=== PATIENT | female | born 1975 | race Caucasian/White ===

== ENCOUNTER 2018-08-24 20:40 | Inpatient (IN) | payer BC, MEDICARE ==
[~2018-08-24] VITALS: Ht 152.4 cm; Wt 117.9 kg
[2018-08-24 20:42] VITALS: BP 133/85
[2018-08-24 21:00] LABS: HEMATOCRIT 32.9 % (37.0-47.0); HEMOGLOBIN 11.5 gm/dL (12.0-15.0); MCH 33.2 pg (26.0-34.0); MCV 94.7 fL (80.0-100.0); MPV 6.8 fl. (7.2-11.1); NUCLEATED RBCS 0 /100WBC; PLATELET COUNT* 315 thou/uL (150-400); RBC 3.48 mil/uL (4.20-5.00); RDW-CV 17.7 % (10.5-14.5)
[2018-08-24 21:20] LABS: ALBUMIN 3.1 g/dL (3.4-5.0); ALKALINE PHOSPHATASE 83 U/L (46-116); ANION GAP 9 mmol/L (7-16); BUN 8 mg/dL (7-18); CALCIUM 8.4 mg/dL (8.5-10.1); CHLORIDE 102 mmol/L (98-107); CO2 26 mmol/L (21-32); CREATININE 0.9 mg/dL (0.6-1.3); GLUCOSE 186 mg/dL (70-99); POTASSIUM 3.2 mmol/L (3.5-5.1); SGPT 58 U/L (30-65); SODIUM 137 mmol/L (136-145); TOTAL BILIRUBIN 0.4 mg/dL (<0.1-1.0); TOTAL PROTEIN 6.8 g/dL (6.4-8.2); TROPONIN-I LEVEL <0.06 ng/mL (<0.06)
[2018-08-24] MEDS ORDERED: ARMOUR THYROID30 M1 PO (21:35)
[2018-08-24] MEDS ORDERED: ATROVENT HFA14 GM INH (21:36)
[2018-08-24] MEDS ORDERED: ASPIR 8181 MG PO (21:36)
[2018-08-24] MEDS ORDERED: PULMICORT0.5 MG/22 INH (21:37)
[2018-08-24] MEDS ORDERED: LIORESAL 10 MG10 MG PO (21:37)
[2018-08-24] MEDS ORDERED: AZITHROMYCIN250 MG PO (21:37)
[2018-08-24] MEDS ORDERED: DALIRESP500 MCG PO (21:38)
[2018-08-24] MEDS ORDERED: CALCIUM 600 +1 EAC1 PO (21:38)
[2018-08-24] MEDS ORDERED: CARDIZEM CD120 MG PO (21:39)
[2018-08-24] MEDS ORDERED: CYMBALTA60 MG PO (21:39)
[2018-08-24 21:40] LABS: ABSOLUTE EOSINOPHILS 0.2 thou/uL (0.0-0.7); ABSOLUTE LYMPHOCYTES 4.9 thou/uL (0.8-5.3); ABSOLUTE MONOCYTES 0.7 thou/uL (0.0-1.2); ABSOLUTE NEUTROPHILS 11.2 thou/uL (1.6-8.1); ANISOCYTOSIS 1+; PLATELET ESTIMATE ADEQUATE; TOXIC GRANULATION 2+
[2018-08-24] MEDS ORDERED: EPIPEN0.3 MG/0.1 IM (21:40)
[2018-08-24] MEDS ORDERED: FORTEO750 MCG/3 SUBQ (21:40)
[2018-08-24] MEDS ORDERED: FLAX OIL1000 MG (21:40)
[2018-08-24] MEDS ORDERED: HIZENTRA10 GM/50 M SUBQ (21:41)
[2018-08-24] MEDS ORDERED: NEURONTIN 300300 M1 PO (21:41)
[2018-08-24] MEDS ORDERED: IPRATROPIU0.2 MG/1 M INH (21:42)
[2018-08-24] MEDS ORDERED: HYDRALAZINE 10M10 MG PO (21:42)
[2018-08-24] MEDS ORDERED: JANUVIA50 MG PO (21:42)
[2018-08-24] MEDS ORDERED: CLONAZEPAM 1 MG1 M1 PO (21:43)
[2018-08-24] MEDS ORDERED: POTASSIUM20 PO (21:43)
[2018-08-24] MEDS ORDERED: UNICOMPLEX M TA1 TA1 PO (21:43)
[2018-08-24] MEDS ORDERED: PROTONIX40 M1 PO (21:44)
[2018-08-24] MEDS ORDERED: HYDROXYCHLOROQ200 M1 PO (21:44)
[2018-08-24] MEDS ORDERED: NUCALA100 MG SUBQ (21:44)
[2018-08-24] MEDS ORDERED: QVAR REDIHALE10.6 G1 INH (21:45)
[2018-08-24] MEDS ORDERED: ZANTAC 150MG T150 MG PO (21:45)
[2018-08-24] MEDS ORDERED: PREDNISONE 20 M20 MG PO (21:45)
[2018-08-24] MEDS ORDERED: SYMBICORT160 MCG/4. INH (21:46)
[2018-08-24] MEDS ORDERED: ZOCOR20 MG PO (21:46)
[2018-08-24] MEDS ORDERED: TRAMADOL 50 MG50 MG PO (21:46)
[2018-08-24] MEDS ORDERED: SPIRIVA INH (21:46)
[2018-08-24] MEDS ORDERED: ZONISAMIDE 100100 M1 PO (21:47)
[2018-08-24] MEDS ORDERED: DEMADEX20 MG PO (21:47)
[2018-08-24] MEDS ORDERED: ZYRTEC10 M5 PO (21:48)
[2018-08-24] MEDS ORDERED: ZYFLO 600 MG600 M1 PO (21:48)
[2018-08-24 21:51] LABS: SGOT 39 U/L (15-37)
[2018-08-24 22:09] LABS: BE -4.4 mmol/L (-2 to +3); PCO2 43.8 mmHg (35.0-45.0); pH 7.313 (7.340-7.450)
[2018-08-24 22:11] LABS: PO2 184.2 mmHg (75.0-100.0)
[2018-08-25] VITALS: BP 123/72
[2018-08-25 00:15] VITALS: BP 119/65
[2018-08-25 04:59] VITALS: BP 117/71
[2018-08-25] MEDS ORDERED: ATIVAN0.5 MG PO (12:43)
[2018-08-25] MEDS ORDERED: ATIVAN0.5 M1 PO (13:01)
[2018-08-25 13:07] VITALS: BP 117/71
--- NOTE | 2018-08-25 15:06 | EKG ---
[place] [address] ELECTROCARDIOGRAM REPORT Name: PHILIP SOSA Room: [address] IN .R.#: [id number] Admission: 08/24/18 Attend Phys: Janusz Camarena, Discharge: Date of : 71 Report #: [id number] THIS REPORT FOR: //name// [facility] ED Test Date: 2018-08-24 Test Time: 20:52:46 Pat Name: PHILIP SOSA Department: Room: [facility] Gender: F Switch Technician: Irish RAMOS : 1975 Requested By: Deborah Schumacher Order Number: [id number] MD: Gerald Boland Measurements Intervals [place] Rate: 143 P: 49 WI: 90 QRS: 14 QRSD: 119 T: 41 QT: 324 QTc: 500 Interpretive Statements Sinus tachycardia Low voltage, precordial leads Borderline ST depression, lateral leads No previous ECG available for comparison Electronically Signed On 08-25-2018 15:06:32 CDT by Gerald Boland [email or web address] <ELECTRONICALLY SIGNED> By: Gerald Boland MD, [facility] 08/25/18 1506 51 51 Gerald Boland MD, [facility] /EPI
--- NOTE | 2018-08-27 12:34 | CON ---
[address] [address] CONSULTATION Name: PHILIP SOSA Room: [address] IN [facility]#: [id number] Admission: 08/24/18 Attend Phys: Janusz Camarena, Discharge: 08/25/18 Date of : 71 Report #: [id number] THIS REPORT FOR: //name// CC: MONI JUAREZ Physician staff Janusz Camarena DATE OF SERVICE: 08/25/2018 ATTENDING PHYSICIANS: Dr. Camarena and Dr. Farrar PRIMARY CARE PHYSICIAN: Dr. Moni Juarez in [place], [place]. LOCATION: She is in room #311. INDICATION FOR CONSULTATION: Asthma, dyspnea. CLINICAL SUMMARY: The patient is a pleasant 42-year-old female, nonsmoker with very complicated past medical history. She was admitted through the Emergency Room yesterday afternoon when she was traveling on the side of the road and they were coming from [place] to [facility] in [place] for scheduled treatment. Their car broke down, they had a flat tire, it took them 30-60 minutes to get the tire fixed, the tire is now fixed and in good shape, the car is in good shape. They had an oxygen concentrator and one of the batteries went bad and so she was running out of her oxygen and had more bronchospasm. The patient was then admitted through the Emergency Room. Her chest x-ray was negative. Gases were stable even though she was on BiPAP. 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 She is quite comfortable with it and also taking portable nebulizers in the car. She has been back and forth from [facility] 4 or 5 times and is usually 4 or 5 days in a stretch. Unbeknownst to me, they used to admit her as an inpatient and do an inpatient workup. She tells me that they are all doing this as an outpatient at [facility] in [place] and that they will come in and round on them, but there are inpatient rounds at [facility] an hour for strictly pediatric patients and not their adult patients. The patient is a steroid dependent, has been steroid dependent for the last 4 years. She has had some adrenal insufficiency and she has had several flareups. As far as I can tell, she has not been intubated for her asthma, but it is quite bronchospastic. 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 Her workup for MAC and for fungus and Aspergillus were negative. 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 [address] CONSULTATION Name: PHILIP SOSA Room: [address]#: [id number] Admission: 08/24/18 Attend Phys: Janusz Camarena, Discharge: 08/25/18 Date of : 71 Report #: [id number] ALLERGIES: SHE HAS MULTIPLE ALLERGIES OR INTOLERANCES INCLUDING BUMEX, CEPHALOSPORINS NAUSEA, MEPERIDINE, DEMEROL, MINOCYCLINE NAUSEA, SPIRONOLACTONE UNKNOWN, TELAVANCIN AND TETRACAINE. MEDICATIONS: Outpatient medications are multiple, in brief, Daliresp 500 mcg daily, prednisone is between 40 and 60 mg daily, currently on 60. She is on Atrovent nebulizer treatments every 4 hours and also on Hizentra 20 grams subcutaneous weekly, duloxetine (Cymbalta) 120 mg daily, diltiazem (Cardizem-CD) 360 mg daily, azithromycin dose has been 250 mg daily, aspirin 81 mg daily, [place] Thyroid 30 mg daily, also Protonix 40 mg daily, simvastatin (Zocor) 20 mg daily, Spiriva hand inhalers 1 cap b.i.d. and then Symbicort 160/4.5 two puffs b.i.d., also on Zyflo 600 mg 2 tabs b.i.d. FAMILY HISTORY: Negative for premature cardiopulmonary disease. SOCIAL HISTORY: The patient is a previous respiratory therapist. She is a lifelong nonsmoker, nondrinker. She is with her and her is quite supportive, it appears, talking to him at the bedside. They both reside in [place], [place] outside [place] in [place], but travel to [facility] in [place]. REVIEW OF SYSTEMS: A 14-point review of systems reviewed and negative except for pertinent positives noted in HPI. PHYSICAL EXAMINATION: GENERAL: This is a pleasant 42-year-old female who was obviously cushingoid, but in no acute distress. She is sitting up in bed, alert and talking to me in sentences. VITAL SIGNS: Blood pressure is 117/71, heart rate is 110, which they said is within normal limits for her, respirations are 16-20, saturation on 3 liters is 95%. Temperature is 36.7 degrees. She is 5 feet 4 inches tall, weight is 118 kilograms or 245 pounds, BMI is 50. 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 Pharynx is clear. NECK: Supple without nodes. CHEST: Shows diminished breath sounds with prolonged expiratory phase. No wheezes noted. No use of accessory muscles. CARDIOVASCULAR: Shows diminished heart tones with a regular rate and rhythm with sinus tachycardia, heart rate 110. ABDOMEN: Soft, without masses or megaly. EXTREMITIES: No calf tenderness. No cyanosis, clubbing or edema. LABORATORY AND DIAGNOSTIC DATA: Hemoglobin is 11, white count of 17,000 and platelets are 315,000 and normal neutrophils and lymphocytes. Absolute neutrophil count is 11,000. Chemistry: Sodium was 137, potassium is 3.2, being repleted, carbon dioxide is 26, BUN is 8, creatinine 0.9, GFR 68, glucose 186, [place] [address] CONSULTATION Name: PHILIP SOSA Room: [address]#: [id number] Admission: 08/24/18 Attend Phys: Janusz Camarena, Discharge: 08/25/18 Date of : 71 Report #: [id number] and calcium is 8.4. Troponin was negative and albumin is 3.1. There is one lactic acid of 5.3 that maybe is a spurious sample. She states she has previously had lactic acids in the 7 range and was not "septic." ABGs on BiPAP in the Emergency Room at 8:00 last night on 40% 31/01 with backup rate of 14 shows a pO2 of 184, pH 7.31, pCO2 is 43, bicarb is 22, sats 98%, carboxyhemoglobin was 0.0. Again, chest x-ray is negative. IMPRESSION: 1. Severe asthma, steroid dependent. 2. Immune deficiency. 3. Trilogy dependent. 4. Variable immune deficiency and followup visits at [facility]. PLAN: I think the patient is safe to travel. We discussed this in length with the patient and her , Mckinley, who was at the bedside. He feels that she is stable to go there and has seen her in much worse condition. They are quite comfortable using the Trilogy and the portable oxygen concentrator. They have an 8-hour battery with a backup with this. They also have a portable nebulizer that will work of his car battery and is crystal mounter. I told them that either in [place] or [facility], they could stop for another hospital. Once they get on the [facility], they may have to go to [place] to find another hospital. They will give us a call tomorrow or when they get there safely and we will see if we can get them to [facility] for 9:00 a.m. for Sunday morning on 08/26/2018, so that she can get her 4 or 5 days of therapy done. She is a DNR/DNI by her own accord and I told them that I talked with Dr. Farrar, she is okay with me to discharge. <ELECTRONICALLY SIGNED> By: Daniele Delatorre MD 08/27/18 1234 1221 [id number] Delatorre MD /nt
== END 2018-08-25 16:19 | disposition home or self-care (01) | DRG 189 ==
LOC: M.ERS 20:40 → M.TBA-ER 22:51 → M.3W 08-25 00:28
PROVIDERS: Personal Emergency Response Attendant; ADMIT Family Medicine
PROC: 5A09357 Assistance with Respiratory Ventilation, Less than 24 Consecutive Hours, Continuous Positive Airway Pressure (ICD-10-PCS; principal; 2018-08-25)
DX: J96.21 Acute and chronic respiratory failure with hypoxia (principal); I50.32 Chronic diastolic (congestive) heart failure; D83.9 Common variable immunodeficiency, unspecified; I47.1 Supraventricular tachycardia; E87.2 Acidosis; J45.50 Severe persistent asthma, uncomplicated; E03.9 Hypothyroidism, unspecified; F41.9 Anxiety disorder, unspecified; E11.9 Type 2 diabetes mellitus without complications; G89.29 Other chronic pain; J42 Unspecified chronic bronchitis; Z79.82 Long term (current) use of aspirin; Z79.51 Long term (current) use of inhaled steroids; Z79.899 Other long term (current) drug therapy; Z88.1 Allergy status to other antibiotic agents; Z88.8 Allergy status to other drugs, medicaments and biological substances